=== PATIENT | female | born 1955 | race Caucasian/White ===

== ENCOUNTER → 2018-05-29 | Outpatient (CLI) | payer BC | LOC: MC.RAD 05-01 11:00 | DX: Z12.31 Encounter for screening mammogram for malignant neoplasm of breast (principal) ==

== ENCOUNTER → 2019-10-04 | Outpatient (CLI) | payer BC | LOC: MC.RAD 17:22 | DX: Z12.31 Encounter for screening mammogram for malignant neoplasm of breast (principal) ==

== ENCOUNTER → 2020-10-19 | Outpatient (CLI) | payer MEDICARE, BC | LOC: MC.RAD 09:00 | DX: Z12.31 Encounter for screening mammogram for malignant neoplasm of breast (principal) ==

== ENCOUNTER → 2021-01-08 | Outpatient (CLI) | payer MEDICARE, BC | LOC: COL.RAD 08:09 | DX: K76.9 Liver disease, unspecified (principal) | CPT/HCPCS: Q9967 ==

== ENCOUNTER → 2021-01-22 | Outpatient (CLI) | payer MEDICARE, BC | LOC: COL.RAD 01-18 07:30 | DX: K76.9 Liver disease, unspecified (principal) | CPT/HCPCS: Q9967 ==

== ENCOUNTER → 2021-06-08 | Outpatient (CLI) | payer MEDICARE, BC | LOC: COL.RAD 08:04 | DX: K76.89 Other specified diseases of liver (principal); K59.00 Constipation, unspecified | CPT/HCPCS: Q9967 ==

== ENCOUNTER → 2021-10-17 | Outpatient (CLI) | payer MEDICARE, BC ==
[~2021-10-17] VITALS: Ht 170.2 cm; Wt 67.0 kg
[~2021-10-17] MED LIST: CALCIUM CITRATE1 TA7 PO; CRESTOR5 MG PO; NEXIUM 40MG40 MG PO; ONE-A-DAY ESSE1 EACH PO; OSTEO-BI-FLEX 21 TAB PO; STOOL SOFTENER100 M2 PO; VITAMIN D31000 IU PO; ZOLOFT 100MG100 MG PO
[2021-10-17 08:58] VITALS: BP 111/75; PULSE 71; TEMP 97.9
[2021-10-17 10:08] VITALS: BP 120/80; PULSE 77
== END | disposition still patient (30) ==
LOC: COL.RAD 08:18
DX: M51.36 Other intervertebral disc degeneration, lumbar region (principal)
CPT/HCPCS: J3301

== ENCOUNTER → 2022-01-08 | Outpatient (CLI) | payer MEDICARE, BC ==
[~2022-01-08] VITALS: Ht 170.2 cm; Wt 67.3 kg
[~2022-01-08] MED LIST changes: +PHARMASSURE CHE30 MG PO
[2022-01-08 13:08] VITALS: BP 133/88; PULSE 74; TEMP 98.2
[2022-01-08 14:35] VITALS: BP 146/75; PULSE 72
== END ==
LOC: COL.RAD 12:37
DX: M51.36 Other intervertebral disc degeneration, lumbar region (principal)
CPT/HCPCS: J3301

== ENCOUNTER 2022-06-21 08:04 | Day surgery (SDC) | payer MEDICARE, BC ==
[~2022-06-21] VITALS: Ht 170.2 cm; Wt 67.3 kg
[2022-06-21 08:59] VITALS: BP 122/78; PULSE 82; TEMP 97.2
[2022-06-21] MEDS ORDERED: CALCIUM 600 MG1 EAC2 PO (09:10)
[2022-06-21] MEDS ORDERED: SENNA-LAX8.6 MG PO (09:10)
[2022-06-21] MEDS ORDERED: ALEVE 220MG220 MG PO (09:10)
[2022-06-21] MEDS ORDERED: METROGEL GEL45 GM TP (09:12)
[2022-06-21 09:40] VITALS: BP 103/72; PULSE 76; TEMP 97.7
[2022-06-21 09:55] VITALS: BP 104/61; PULSE 80
[2022-06-21 10:05] VITALS: BP 119/76; PULSE 80
--- NOTE | 2022-06-21 10:10 | NUR ---
0940 RETURNS TO ROOM 8 PER CART. AWAKE, ALERT. AMBULATES TO RECLINER WITH STANDBY ASSIST. RESP UNLABORED. DENIES NAUSEA OR ABD PAIN. CALL LIGHT AT SIDE. 0945 DR. HI HERE TO VISIT WITH PATIENT. 0950 TOLERATES PO JUICE AND MUFFIN WITHOUT NAUSEA 0952 DISCHARGE INSTRUCTIONS REVIEWED. PATIENT VERBALIZES UNDERSTANDING. COPY PROVIDED IN DISCHARGE FOLDER. 1005 DRESSES SELF
== END 2022-06-21 10:12 | disposition home or self-care (01) ==
LOC: SDCO 08:04
DX: Z12.11 Encounter for screening for malignant neoplasm of colon (principal); K57.30 Diverticulosis of large intestine without perforation or abscess without bleeding; K64.0 First degree hemorrhoids; K63.89 Other specified diseases of intestine; Z80.0 Family history of malignant neoplasm of digestive organs
CPT/HCPCS: J2704

== ENCOUNTER 2023-08-01 09:01 | Day surgery (SDC) | payer MEDICARE, BC ==
[~2023-08-01] VITALS: Ht 170.2 cm; Wt 68.9 kg
[~2023-08-01 09:01] MED LIST changes: +ALEVE 220MG220 MG PO; +CALCIUM 600 MG1 EAC2 PO; +LR 1,000 ML IV SCH; +METROGEL GEL45 GM TP; +Ondansetron 4 MG/2 ML VIAL IV PRN; +SENNA-LAX8.6 MG PO
[2023-08-01 09:21] VITALS: BP 107/79; PULSE 76; TEMP 97.4
[2023-08-01] MEDS ORDERED: VITAMIN D 400400 IU PO (09:34)
[2023-08-01] MEDS ORDERED: Lidocaine PF 2% (20 MG/ML) 5 ML VIAL ONE (10:24)
[2023-08-01 11:00] VITALS: BP 101/88; PULSE 70
[2023-08-01 11:15] VITALS: BP 129/78
[2023-08-01 11:30] VITALS: BP 131/79; PULSE 74
--- NOTE | 2023-08-01 11:40 | NUR ---
PT ARRIVED BACK TO ROOM @ 1100 ON GERNY; A&OX4. ASSISTED BACK TO CHAIR STANDBY ASSIST. WAS CALLED TO COME BACK AND GO OVER FINDINGS WITH PT AND DR. HI. DR. HI WENT INTO PT ROOM @ 1115 TO EXPLAIN FINDINGS AND SUGGESTIONS TO PT. BIOPSIES WERE TAKEN FROM THE DUODENEM, STOMACH, AND UPPER ESOPHAGUS. 22G TO RT HAND WAS D/C'D. FL INSTRUCTIONS GONE OVER WITH PT AND @ 1112. PT EXPRESSED UNDERSTANDING AND NO QUESTIONS. PT TOLERATED PO FLUIDS AND FOOD W/OUT DIFFICULTY OR PAIN. PT DISCHARGED HOME W/ @ 1146
== END 2023-08-01 11:42 | disposition home or self-care (01) ==
LOC: SDCO 09:01
DX: Z13.810 Encounter for screening for upper gastrointestinal disorder (principal); R12 Heartburn; R11.0 Nausea; K22.4 Dyskinesia of esophagus
CPT/HCPCS: J2704; J7120

== ENCOUNTER → 2024-02-17 | Outpatient (CLI) | payer MEDICARE, BC ==
[~2024-02-17] MED LIST changes: +BENADRYL25 M2 PO; -CALCIUM 600 MG1 EAC2 PO; +CALCIUM CITRATE1 TA4 PO; -LR 1,000 ML IV SCH; -Ondansetron 4 MG/2 ML VIAL IV PRN; +VITAMIN D 400400 IU PO; +VITAMIN D31000 I1 PO
== END ==
LOC: MC.RAD 14:14
DX: Z12.31 Encounter for screening mammogram for malignant neoplasm of breast (principal)